=== PATIENT | male | born 2000 | race Caucasian/White ===

== ENCOUNTER 2023-10-08 21:35 | Emergency (ER) | payer MEDICAID, OTHER ==
[~2023-10-08] VITALS: Ht 180.3 cm; Wt 102.1 kg
[2023-10-08 21:48] VITALS: BP 112/86; PULSE 90; RESP 16; TEMP 97.4; O2SAT 96
[2023-10-08] MEDS: IBUPROFEN 600 MG TAB PO ONE (22:26)
[2023-10-08] MEDS ORDERED: IBUP-2213 PO (23:10)
[2023-10-08] MEDS ORDERED: ACET-8905 PO (23:10)
[2023-10-08] MEDS ORDERED: MORPHINE SULFATE 4 MG/ML SYR ONE (23:15)
[2023-10-08] MEDS ORDERED: MORPHINE SULFATE 4 MG/ML SYR IM ONE (23:15)
[2023-10-08] MEDS ORDERED: ACET-10509 PO (23:17)
[2023-10-08 23:34] VITALS: BP 112/86; PULSE 90; RESP 16; TEMP 97.4; O2SAT 96
== END 2023-10-08 23:34 | disposition home or self-care (01) ==
LOC: MED 21:35
DX: S82.831A Other fracture of upper and lower end of right fibula, initial encounter for closed fracture (principal); S90.01XA Contusion of right ankle, initial encounter; Z79.899 Other long term (current) drug therapy; W18.39XA Other fall on same level, initial encounter; Y92.89 Other specified places as the place of occurrence of the external cause; Y93.89 Activity, other specified; Y99.8 Other external cause status
CPT/HCPCS: 29505; 29515; 73590; 73610; 99284; J2270